=== PATIENT | female | born 1955 | race Caucasian/White ===

== ENCOUNTER 2018-10-14 17:55 | Emergency (ER) | payer OTHER, SELFPAY ==
[2018-10-14 18:23] VITALS: BP 101/69; PULSE 63; RESP 15; TEMP 36.6; O2SAT 99; BMI 22.4
--- NOTE | 2018-10-14 18:25 | ED.GIBLEED ---
HPI - GI Bleed General Chief complaint: GI Bleed Stated complaint: RECTAL BLEEDING Time Seen by Provider: 10/14/18 18:19 Source: patient Mode of arrival: ambulatory Limitations: no limitations History of Present Illness HPI Narrative: 63-year-old female here for evaluation of rectal bleeding. She states that for the past several weeks/month she has had fecal incontinence. She also states that she has had a decreased appetite. She does not know why she has been not wanting to eat but just does not have any appetite. She states she has seen her primary doctor about this. She states she has talked about getting in to see a GI provider but has yet to do this. Saw her primary care doctor this morning who wanted to do ?some tests ?patient reports that after seeing her primary doctor this morning she had an episode of rectal bleeding. Denies any abdominal pain. Denies urinary symptoms. No vaginal symptoms. Related Data Previous Rx's Medication Instructions Recorded esomeprazole magnesium 20 mg PO DAILY #30 cap 10/14/18 Allergies Allergy/AdvReac Type Severity Reaction Status Date / Time Sulfa (Sulfonamide Allergy Unknown Verified 10/14/18 18:22 Antibiotics) [SULFA (SULFONAMIDE ANTIBIOTICS)] Review of Systems Constitutional Reports fatigue, Denies fever(s), Denies headache(s) and Reports weakness ENT Ears, Nose, Mouth, and Throat: Denies headache(s) Cardiovascular Denies chest pain and Denies dyspnea Respiratory Denies dyspnea Gastrointestinal Gastrointestinal: Denies abdominal pain, Denies nausea and Denies vomiting Comments: Rectal bleeding fecal incontinence Genitourinary Denies dysuria, Denies urinary incontinence, Denies urinary hesitancy and Denies urinary urgency Musculoskeletal Denies myalgias and Denies arthralgias Integumentary/Breasts Denies rash Neurologic Denies headache(s) and Reports weakness Endocrine Reports fatigue Hematologic/Lymphatic Comments: Not on anticoagulation PFSH Medical History Gastroesophageal reflux disease (Acute) Psychosis (Acute) Social History Smoking Status: Never smoker Exam Initial Vital Signs Initial Vital Signs: Vital Signs Temperature 97.8 F 10/14/18 18:23 Pulse Rate 63 10/14/18 18:23 Respiratory Rate 15 10/14/18 18:23 Blood Pressure 101/69 10/14/18 18:23 Pulse Oximetry 99 10/14/18 18:23 Const General: cooperative, well developed, well groomed and No acute distress Nutritional Appearance: cachectic Orientation: alert, awake and oriented x3 HENMT Head: normal to inspection and normocephalic Resp Effort & Inspection: normal respiratory effort Auscultation: clear to auscultation bilaterally Cardio Rate: regular rate Rhythm: regular rhythm Pulses: radial pulses present GI Inspection: non-distended Palpation: soft, No firm and No tender Rectal Exam: normal sphincter tone, heme positive stool, No laceration and No lesions Skin Lesions: no lesions Rashes: no rashes Neuro General: alert, awake and oriented x3 Extrem General: normal to inspection and capillary refill normal Psych Appearance: grossly normal and well kempt Course Orders Ordered: ED Orders 10/14/18 18:40 Urinalysis and Microscopic Stat Urine Culture Stat 10/14/18 18:46 CT abdomen pelvis w con Stat Discontinued Medications Sodium Chloride (Normal Saline 0.9%) 1,000 mls @ 1,000 mls/hr IV BOLUS ONE Stop: 10/14/18 19:44 Last Admin: 10/14/18 19:03 Dose: 1,000 mls/hr Vital Signs - 8 hr 10/14/18 20:28 10/14/18 21:03 Temperature 97.8 F Pulse Rate 62 64 Respiratory Rate 14 16 Blood Pressure 98/58 L Blood Pressure [Right Arm] 102/66 Pulse Oximetry 100 98 MDM - GI Bleed Lab Data Attestation: I reviewed the patient's lab results. Result diagrams: 10/14/18 18:25 10/14/18 18:25 Lab Results 10/14/18 10/14/18 10/14/18 Range/Units 18:25 18:25 18:25 WBC 7.5 (4.5-11.0) X10^3/uL RBC 4.34 (4.0-5.2) X10^6/uL Hgb 13.2 (12.0-16.0) g/dL Hct 39.5 (36-46) % MCV 90.9 (80-100) fL MCH 30.3 (26-34) PG MCHC 33.4 (30-36) % RDW 12.9 (11.6-14.8) % Plt Count 289 (150-400) X10^3/uL Neut % (Auto) 64.2 (50-75) % Lymph % (Auto) 28.4 (25-40) % [place] % (Auto) 6.2 (3-14) % Eos % (Auto) 0.8 L (2-4) % Baso % (Auto) 0.4 (0-2) % Neut # (Auto) 4800 (3788-3768) /uL PT 11.8 (10.1-12.7) SECONDS INR 1.0 (0.9-1.3) APTT 30 (26.4-36.2) SECONDS Sodium 137 (137-145) mmol/L Potassium 4.1 (3.4-5.1) mmol/L Chloride 99 (98-107) mmol/L Carbon Dioxide 27 (22-32) mmol/L BUN 5 L (7-17) mg/dL Creatinine 0.70 (0.52-1.04) mg/dL Estimated GFR > 60.0 (>60) mL/min BUN/Creatinine Ratio 7.1 (6-22) Glucose 76 L (80-110) mg/dL Calcium 9.8 (8.4-10.2) mg/dL Total Bilirubin 0.6 (0.2-1.3) mg/dL AST 30 (14-36) IU/L ALT 28 (9-52) IU/L Alkaline Phosphatase 49 (38-126) U/L Troponin I (0.01-0.034) ng/mL Total Protein 7.0 (6.3-8.2) g/dL Albumin 4.4 (3.5-5.0) g/dL Globulin 2.6 (1.7-4.1) g/dL Albumin/Globulin Ratio 1.7 (1.0-2.8) Urine Color Urine Appearance Urine pH (4.5-8.0) Ur Specific [place] (1.000-1.035) Urine Protein (Negative) Urine Glucose (UA) (Normal) g/dL Urine Ketones (NEGATIVE) Urine Occult Blood (Negative) Urine Nitrate (Negative) Urine Bilirubin (NEGATIVE) Urine Urobilinogen (0.2) E.U./dL Ur Leukocyte Esterase (NEGATIVE) Urine RBC (0-5/HPF) Urine WBC (0-5/HPF) Ur Squamous Epith Cells Urine Bacteria (None) Ur Culture Indicated? Micro UA Comment 10/14/18 10/14/18 Range/Units 18:25 18:40 WBC (4.5-11.0) X10^3/uL RBC (4.0-5.2) X10^6/uL Hgb (12.0-16.0) g/dL Hct (36-46) % MCV (80-100) fL MCH (26-34) PG MCHC (30-36) % RDW (11.6-14.8) % Plt Count (150-400) X10^3/uL Neut % (Auto) (50-75) % Lymph % (Auto) (25-40) % [place] % (Auto) (3-14) % Eos % (Auto) (2-4) % Baso % (Auto) (0-2) % Neut # (Auto) (4105-0743) /uL PT (10.1-12.7) SECONDS INR (0.9-1.3) APTT (26.4-36.2) SECONDS Sodium (137-145) mmol/L Potassium (3.4-5.1) mmol/L Chloride (98-107) mmol/L Carbon Dioxide (22-32) mmol/L BUN (7-17) mg/dL Creatinine (0.52-1.04) mg/dL Estimated GFR (>60) mL/min BUN/Creatinine Ratio (6-22) Glucose (80-110) mg/dL Calcium (8.4-10.2) mg/dL Total Bilirubin (0.2-1.3) mg/dL AST (14-36) IU/L ALT (9-52) IU/L Alkaline Phosphatase (38-126) U/L Troponin I < 0.012 (0.01-0.034) ng/mL Total Protein (6.3-8.2) g/dL Albumin (3.5-5.0) g/dL Globulin (1.7-4.1) g/dL Albumin/Globulin Ratio (1.0-2.8) Urine Color Yellow Urine Appearance Clear Urine pH 7.0 (4.5-8.0) Ur Specific [place] <=1.005 (1.000-1.035) Urine Protein Negative (Negative) Urine Glucose (UA) Negative (Normal) g/dL Urine Ketones Trace H (NEGATIVE) Urine Occult Blood Negative (Negative) Urine Nitrate Negative (Negative) Urine Bilirubin Negative (NEGATIVE) Urine Urobilinogen 0.2 (0.2) E.U./dL Ur Leukocyte Esterase Trace H (NEGATIVE) Urine RBC None seen (0-5/HPF) Urine WBC 0-1/hpf (0-5/HPF) Ur Squamous Epith Cells 0-1 /hpf Urine Bacteria None seen (None) Ur Culture Indicated? Specimen cultured Micro UA Comment Not Reportable Urine Dip Bedside Urine Glucose Negative Bedside Urine Bilirubin - Negative Bedside Urine Ketone +/- 5 Urine Specific [place] 1.010 Bedside Urine Occult Blood - Negative Bedside Urine pH 6.5 Bedside Urine Protein - Negative Bedside Urine Urobilinogen - Negative Bedside Urine Nitrite - Negative Bedside Urine Leukocytes - Negative Esterase Imaging Data CT scan - abdomen: Radiologist's impression: PROCEDURE: CT ABDOMEN PELVIS W CON INDICATIONS: Rectal bleeding TECHNIQUE: After the administration of intravenous contrast, 5 mm thick sections acquired from the diaphragm to the symphysis. 5 mm coronal and sagittal reformats were acquired. For radiation dose reduction, the following was used: automated exposure control, adjustment of mA and/or kV according to patient size. COMPARISON: None. FINDINGS: Image quality: Excellent. ABDOMEN: Lung bases: Lung bases are clear. Heart size is normal. Solid organs: Liver is normal in size and enhancement. Gallbladder is unremarkable. Biliary system is non dilated. Pancreas enhances normally. Spleen is normal in size and enhancement. No adrenal nodules. Kidneys demonstrate normal size and enhancement, without hydronephrosis. A 7 mm diameter nonobstructing calculus is present in the upper pole the left kidney. Peritoneum and bowel: Bowel loops demonstrate normal wall thickness and caliber. The appendix is thin walled and gas filled. There are scattered sigmoid diverticula. No evidence for diverticulitis. No free fluid or air. Nodes and vessels: No retroperitoneal or mesenteric adenopathy by size criteria. Aorta and inferior vena cava are normal in size. Miscellaneous: No ventral hernias. PELVIS: Genitourinary: Bladder wall thickness is normal. Miscellaneous: No inguinal hernias or adenopathy. Bones: No suspicious bony lesions. No vertebral body compression fractures. A small sclerotic focus is present within the L3 spinous process which likely represents a small bone island. IMPRESSION: 1. No acute intra-abdominal findings. Diverticulosis. No acute diverticulitis. It is unclear whether rectal bleeding may be secondary to diverticulosis. 2. The appendix was not visualized; however there are no ancillary findings to suggest acute appendicitis. Dictated by: Mandy Shields M.D. on 10/14/2018 at 19:57 ECG Data Attestation: I personally reviewed and interpreted this ECG as follows: Prior ECG tracings: not available for review Interpretation: Sinus bradycardia Ventricular rate of 59 Normal axis Normal QRS Normal QTC No ST T wave changes MDM Narrative Medical decision making narrative: Patient's CT scan shows diverticulosis without signs of diverticulitis. Did have heme-positive stool. Benign abdominal exam. Not anemic. Not tachycardic. Is cachectic. Patient unable to provide a stool sample for us. I did talk with her about the anorexia she was having. We did discuss the use of meal supplements such as Ensure or boost. She stated that she would not take these because she ?do not want to get fat ?I was able to speak with her primary doctor. This was prior to the CT result. I do not feel that the patient needs acute admission to the hospital for an upper GI or colonoscopy. Will start on a PPI. She was given a prescription for this. Informed her that she needed to talk with her primary doctor regarding the CT scan and also to discuss the indications for referral to see Gastroenterology as an outpatient. Patient expressed understanding and agreement with plan. Discharge Plan Departure Patient Disposition: Home Clinical Impression: Rectal bleeding, Anorexia Discharge Date/Time: 10/14/18 21:03 Interventions: ED Discharge Assessment Last Done: 10/14/18 21:03 Instructions: DI for Rectal Bleeding Activity Restrictions/Additional Instructions: If you have not heard from your primary doctor by noon tomorrow I do recommend that you give him a call. I do recommend that you start taking the medication that you were given a prescription for this evening as directed. I also recommend that you start a meal supplements such as Ensure or boost to help you gain weight. Return to the emergency department for any new or worsening symptoms Prescriptions: New esomeprazole magnesium 20 mg capsule,delayed release(DR/EC) 20 mg PO DAILY Qty: 30 RF: 0
[2018-10-14 18:45] LABS: Add Manual Diff / Slide Review NO; Basophils Percent Auto 0.4 % (0-2); Eosinophils Percent Auto 0.8 % (2-4); Hematocrit 39.5 % (36-46); Hemoglobin 13.2 g/dL (12.0-16.0); Lymphocytes Percent Auto 28.4 % (25-40); Mean Corpuscular HGB Conc 33.4 % (30-36); Mean Corpuscular Hemoglobin 30.3 PG (26-34); Mean Corpuscular Volume 90.9 fL (80-100); Monocytes Percent Auto 6.2 % (3-14); Neutrophils Absolute Auto 4800 /uL (1500-7000); Neutrophils Percent Auto 64.2 % (50-75); Platelet Count 289 X10^3/uL (150-400); Red Blood Cell Count 4.34 X10^6/uL (4.0-5.2); Red Cell Distribution Width 12.9 % (11.6-14.8); White Blood Cell Count 7.5 X10^3/uL (4.5-11.0)
--- NOTE | 2018-10-14 18:46 | DI.CT.S_ITS ---
PROCEDURE: CT ABDOMEN PELVIS W CON INDICATIONS: Rectal bleeding TECHNIQUE: After the administration of intravenous contrast, 5 mm thick sections acquired from the diaphragm to the symphysis. 5 mm coronal and sagittal reformats were acquired. For radiation dose reduction, the following was used: automated exposure control, adjustment of mA and/or kV according to patient size. COMPARISON: None. FINDINGS: Image quality: Excellent. ABDOMEN: Lung bases: Lung bases are clear. Heart size is normal. Solid organs: Liver is normal in size and enhancement. Gallbladder is unremarkable. Biliary system is non dilated. Pancreas enhances normally. Spleen is normal in size and enhancement. No adrenal nodules. Kidneys demonstrate normal size and enhancement, without hydronephrosis. A 7 mm diameter nonobstructing calculus is present in the upper pole the left kidney. Peritoneum and bowel: Bowel loops demonstrate normal wall thickness and caliber. The appendix is thin walled and gas filled. There are scattered sigmoid diverticula. No evidence for diverticulitis. No free fluid or air. Nodes and vessels: No retroperitoneal or mesenteric adenopathy by size criteria. Aorta and inferior vena cava are normal in size. Miscellaneous: No ventral hernias. PELVIS: Genitourinary: Bladder wall thickness is normal. Miscellaneous: No inguinal hernias or adenopathy. Bones: No suspicious bony lesions. No vertebral body compression fractures. A small sclerotic focus is present within the L3 spinous process which likely represents a small bone island. IMPRESSION: 1. No acute intra-abdominal findings. Diverticulosis. No acute diverticulitis. It is unclear whether rectal bleeding may be secondary to diverticulosis. 2. The appendix was not visualized; however there are no ancillary findings to suggest acute appendicitis. Dictated by: Mandy Shields M.D. on 10/14/2018 at 19:57 Approved by: Mandy Shields M.D. on 10/14/2018 at 20:00
[2018-10-14 18:49] LABS: Prothrombin Time 11.8 SECONDS (10.1-12.7)
--- NOTE | 2018-10-14 18:49 | PC.NURSE ---
denies dizziness, states, generalized weakness
[2018-10-14 18:52] LABS: Alanine Aminotransferase 28 IU/L (9-52); Albumin 4.4 g/dL (3.5-5.0); Albumin Globulin Ratio 1.7 (1.0-2.8); Alkaline Phosphatase 49 U/L (38-126); Aspartate Aminotransferase 30 IU/L (14-36); BUN Creatinine Ratio 7.1 (6-22); Bilirubin Total 0.6 mg/dL (0.2-1.3); Blood Urea Nitrogen 5 mg/dL (7-17); Calcium 9.8 mg/dL (8.4-10.2); Carbon Dioxide 27 mmol/L (22-32); Chloride 99 mmol/L (98-107); Estimated Glomerular Filt Rate > 60.0 mL/min (>60); Globulin 2.6 g/dL (1.7-4.1); Glucose 76 mg/dL (80-110); PTT Partial Thromboplastin Tim 30 SECONDS (26.4-36.2); Sodium 137 mmol/L (137-145)
[2018-10-14 18:57] LABS: HEMOLYSIS 53 (0-50); Potassium 4.1 mmol/L (3.4-5.1)
[2018-10-14] MEDS: SODIUM CHLORIDE 0.9% 1,000 ML 1000 ML IV (19:03)
[2018-10-14 19:17] LABS: Troponin I < 0.012 ng/mL (0.01-0.034)
[2018-10-14 19:45] LABS: Bacteria Urine None Seen; RBC Urine None Seen (0-5/HPF)
[2018-10-14 19:47] LABS: Appearance Urine UA CLEAR; Bilirubin Urine UA NEGATIVE (NEGATIVE); Color Urine UA YELLOW; Glucose Urine UA NEGATIVE (Normal); Ketones Urine UA TRACE (NEGATIVE); Leukocyte Esterase Urine UA TRACE (NEGATIVE); Nitrite Urine UA NEGATIVE (Negative); Occult Blood Urine UA NEGATIVE (Negative); Protein Urine UA NEGATIVE (Negative); Specific Gravity Urine UA <=1.005 (1.000-1.035); Urobilinogen Urine UA 0.2 E.U./dL (0.2)
[2018-10-14 19:52] LABS: Culture Indicated Urine Specimen Cultured; Squamous Epithelial Cell Urine 0-1 /HPF; WBC Urine 0-1/HPF (0-5/HPF)
[2018-10-14 20:28] VITALS: BP 102/66; PULSE 62; RESP 14; O2SAT 100
[2018-10-14 21:03] VITALS: BP 98/58; PULSE 64; RESP 16; TEMP 36.6; O2SAT 98
--- NOTE | 2018-12-24 14:20 | PC.NURSE ---
Per Douglas AVILA, IV NS completed on 10/14/2018 at 2030 with 1000ml infused
== END 2018-10-14 21:03 | disposition home or self-care (01) ==
PROVIDERS: Emergency Provider Emergency Medicine
DX: K62.5 Hemorrhage of anus and rectum (principal); R63.0 Anorexia
CPT/HCPCS: 36591; 74177; 80053; 81001; 81003; 84484; 85025; 85610; 85730; 87086; 93005; 96360; 99283; 99285; Q9967